=== PATIENT | female | born 1945 | race Caucasian/White ===

== ENCOUNTER 2016-06-27 00:20 | Observation (INO) | payer MEDICARE, OTHER ==
[~2016-06-27] VITALS: Ht 157.5 cm; Wt 69.4 kg
[2016-06-27 00:30] VITALS: BP 144/70
[2016-06-27] MEDS ORDERED: LISI10TA2 PO (03:23)
[2016-06-27] MEDS ORDERED: SIMV40TA3 PO (03:23)
[2016-06-27] MEDS ORDERED: OMEP40CA5 PO (03:28)
[2016-06-27] MEDS ORDERED: CALC-30 PO (03:29)
[2016-06-27] MEDS ORDERED: MULT1TAB52 PO (03:29)
[2016-06-27] MEDS ORDERED: FERR-26 PO (03:30)
[2016-06-27 06:23] VITALS: BP 111/74
[2016-06-27] MEDS: CALCIUM CARB/VIT D3 500/200 TABLET PO SCH (09:55)
[2016-06-27] MEDS: MULTIVITAMIN with MINERAL TABLET. PO SCH (09:55)
[2016-06-27] MEDS: PANTOPRAZOLE 40 MG TABLET. PO SCH (09:55)
[2016-06-27] MEDS: ASPIRIN ENTERIC COATED 81 MG TABLET.DR. PO SCH (09:56)
[2016-06-27] MEDS: LISINOPRIL 10 MG TABLET PO SCH (09:56)
[2016-06-27 10:09] VITALS: BP 107/55
--- NOTE | 2016-06-27 12:19 | RAD ---
Indication TIA versus CVA. Grayscale color Doppler and spectral imaging was performed. Examination was targeted to the carotid bifurcations. On the right there is mild plaquing at the bifurcation. The color Doppler images do not suggest significant turbulence. The common carotid waveform and velocities are normal. The internal carotid waveform and velocities are also normal. The external carotid has a normal appearance. The vertebral artery is patent and demonstrates normal antegrade flow. On the left there is minimal plaquing at the bifurcation. The color Doppler images do not suggest significant turbulence. The common carotid waveform and velocities are normal. The internal carotid waveform and velocities are also normal. The external carotid has a normal appearance. The vertebral is patent and demonstrates normal directional flow. IMPRESSION: No evidence of hemodynamically significant stenosis at either carotid bifurcation. Stenosis 0-50%. Note: Stenosis calculations for CT, MR and conventional angiography are based upon determination of the distal ICA diameter in accordance with the NASCET methodology. Stenosis calculations for doppler studies are derived from validated velocity criteria which are known to correlate with NASCET methodology of determining stenosis.
--- NOTE | 2016-06-27 13:15 | HP ---
ADMIT DATE: 06/27/2016 REASON FOR ADMISSION: This is a 70-year-old female who is deaf, has a cochlear implant, but cannot hear at the present time. Apparently, hearing aid is broken, but she reads lips very well. She was transferred from [facility] for concerns of her roommates and such that she has not come out of her apartment for 24 hours. She noticed that she was leaning to the right in her wheelchair and not able to get up and walk. PAST MEDICAL HISTORY: Parkinson's disease and currently not on any medications. Severe tremor. She does have a history of falls, reflux, breast cancer, HCC radiation, depression, hyperlipidemia, hypertension, some history seizures, and visual impairment. PAST SURGICAL HISTORY: Hand surgery x 3 after getting caught in a machine, cochlear implants, and breast surgery for ductal carcinoma. ALLERGIES: UNABLE TO GET AN MRI DUE TO MAGNET IN HEAD. MEDICATIONS: Reviewed and are available on the MAR. As stated she is not on an aspirin and does not take anything for Parkinson's. SOCIAL HISTORY: She smokes about 5 cigarettes a day. No alcohol. She lives in [facility]. She does have a daughter who is currently out of town. REVIEW OF SYSTEMS: Positive for tremors and leaning to the right yesterday; otherwise, negative. Emergency Room record states that she did not have the ability to get herself up from bed, stand, and move very well. OBJECTIVE: VITAL SIGNS: Blood pressure 107/55, pulse 68, respirations 18, and pulse ox 96% on room air, height 62 inches, and weight 157.13 pounds. GENERAL: A pleasant 70-year-old in no acute distress. HEENT: Her hearing is severely impaired. Though she cannot hear she reads lips and we communicated via writing. Pupils were equal, round, and react to light. Extraocular muscles are intact. Her nose was patent. Her throat was clear. Her tongue was midline. NECK: Supple without adenopathy. There are no carotid bruits. LUNGS: Clear to auscultation. CARDIOVASCULAR: Regular rhythm and rate. ABDOMEN: Soft and nontender. EXTREMITIES: Without edema. NEUROLOGIC: She has a severe tremor on the right arm and less so in the left resting tremor. Cranial nerves, hearing impaired, but others appear intact. Shrug her shoulders. Tongue midline and can cooperate. Pneumatic Tester Mechanic strength is about equal; a little bit weaker on the right. Reflexes were brisk 2+/4. The patient was assisted out of at bed [facility] when she was able to take a few short shuffled steps. LABORATORY DATA: Her blood work from [facility] normal CBC. Normal chemistry profile. CT of the head, no acute intracranial findings. This is via from [facility]. The ventricles are mildly enlarged. Mild decreased attenuation seen with periventricular white matter consistent with small vessel disease. ASSESSMENT: 1. Weakness. 2. Deafness. 3. Stroke-like symptoms in the Emergency Room at [facility]. 4. White matter disease of the brain. 5. Parkinson's disease with severe tremor and this is untreated. 6. Hypertension. 7. Gastroesophageal reflux disease. PLAN: Neurological consult, PT and OT, and possibly place her on some type of medicine for Parkinson's. KAREEM REYES DO DR: ELIANE/carolee JOB#: [id number] / [id number]
[2016-06-27] MEDS: CARBIDOPA/LEVODOPA 25/100MG TABLET PO SCH ×2 (14:03→20:39)
[2016-06-27] MEDS: rOPINIRole 0.5 MG TABLET. PO SCH ×2 (14:03→20:39)
[2016-06-27 16:50] VITALS: BP 123/81
[2016-06-27 17:25] VITALS: BP 102/53
[2016-06-27 19:30] VITALS: BP 112/70
[2016-06-27] MEDS ORDERED: SIMVASTATIN 40 MG TABLET. PO SCH (21:00)
[2016-06-27] MEDS ORDERED: FERROUS SULFATE 325 MG TABLET PO SCH (21:00)
--- NOTE | 2016-06-28 01:48 | CONS ---
DATE OF CONSULTATION: 06/27/2016 NEURO CONSULT REFERRING PHYSICIAN: Dr. Saskia Ballard. REASON FOR CONSULTATION: Rule out stroke. HISTORY OF PRESENT ILLNESS: This is a 70-year-old right-handed white female who was transferred from [facility] Emergency Room for further care as there was no bed available at [facility]. The patient is an assisted care living place resident. She was found with weakness of the right side leaning to the right in her wheelchair. The patient had not come out of her apartment in 24 hours. The patient was alert and oriented; however, she was unable to stand up and walk. She has had significant hearing loss and had a cochlear implant. She can read lips, but unable to provide any information. Initial nonenhanced head CT scan revealed no evidence of acute intracranial process. According to the Emergency Room note, the patient is unsteady and unable to use a cane or walker. PAST MEDICAL HISTORY: Quite significant for depressions, hyperlipidemia, hypertension, Parkinson's disease, seizure disorders and visual disturbances, breast cancer on the left, and iron deficiency anemia. PAST SURGICAL HISTORY: Significant for hand surgery, cochlear implant, and breast surgery. FAMILY HISTORY: None obtainable. SOCIAL HISTORY: The patient smokes a quarter of pack of cigarettes daily. There is no history of alcohol drinking or illicit drug use. CURRENT MEDICATIONS: Zocor 40 mg at bedtime, ferrous sulfate 325 mg at bedtime, aspirin 81 mg p.o. daily, Protonix 40 mg p.o. daily, calcium/vitamin, lisinopril 10 mg daily. ALLERGIES: No known drug allergies. REVIEW OF SYSTEMS: As mentioned above in history of present illness, otherwise none obtainable. PHYSICAL EXAMINATION: GENERAL: Well-developed, well-nourished white female, not in acute distress. She weighs 157 pounds. VITAL SIGNS: Blood pressure 107/55, respiratory rate 18, pulse is 68, temperature is 98.4, oxygen saturation 96% on room air. HEENT: Normocephalic, atraumatic, otherwise unremarkable. NECK: Supple. Negative for carotid bruit, lymphadenopathy, or thyromegaly. LUNGS: Clear to A and P. CARDIOVASCULAR: Regular rate and rhythm, normal S1, S2. There is no S3, S4 or murmur. ABDOMEN: Soft. Bowel sounds positive. EXTREMITIES: Negative for cyanosis, clubbing, or pitting edema. NEUROLOGIC: 1. Mental Status: The patient is alert and oriented to herself. Speech is fluent. Memory language and abstract thinking, limited to evaluate because of severe hearing loss. There is no facial motor or sensory deficit, bilateral hearing loss, and the gag reflex is present. The palate is elevated symmetrically. Sternocleidomastoid muscles are powerful bilaterally. The patient shrugs her shoulders symmetrically and protrudes her tongue in the midline without fasciculation or atrophy. 2. Motor Examination: No focal muscle bulk was seen. The tone is normal. The strength is 4/5 in the right upper extremity with mild drifting. The strength also was 5/5 throughout. Sensory examination revealed diminished pinprick and light touch senses over the right upper and lower extremities compared to those on the left side. Deep tendon reflexes are symmetric and active with absent Achilles responses. Babinski is positive on the right side and negative on the left. Gait not tested. The patient has resting tremors on both upper extremities, more prominent on the right side. The tone is normal. She had mild kinetic and postural tremors. LABORATORY DATA: CBC revealed white blood cells of 8.8 thousand, hemoglobin 13.2, hematocrit 38, platelet count 176,000. Chemistry revealed sodium 141, potassium 3.6, chloride 107, CO2 23. Glucose is 84, calcium is 9.2. BUN is 12, creatinine 0.9. Liver enzymes are normal. DIAGNOSTIC DATA: Head CT scan as described in the history of present illness is negative for acute intracranial process and left partial mastoidectomy. Chronic small vessel ischemic changes were also noted. IMPRESSION: 1. Possible small lacunar infarct resulted in a mild weakness of the right side more prominent on the upper extremity. 2. Parkinson's disease. 3. GERD, hyperlipidemia, hypertension. 4. Severe bilateral hearing loss, status post post-cochlear implant. RECOMMENDATIONS: 1. Continue with aspirin 81 mg daily. 2. Await carotid Doppler study. 3. We will start the patient on carbidopa/levodopa . 4. Physical therapy and speech therapy evaluation. 5. Continue with current management initiated by Dr. Ballard. Beth GUILLEN MD DR: JESUS/carolee JOB#: [id number] / [id number]
[2016-06-28 04:04] VITALS: BP 110/53
[2016-06-28 06:00] VITALS: BP 11/65
[2016-06-28 06:48] LABS: BASO % 1 % (0-3); EOS # 0.2 x10^3/uL (0.0-0.7); EOS % 3 % (0-3); HEMATOCRIT 37.6 % (36.0-47.0); HEMOGLOBIN 12.6 g/dL (12.0-15.5); LYMPH # 1.9 x10^3/uL (1.0-4.8); LYMPH % 25 % (24-48); MEAN CORPUSCULAR HEMOGLOBIN 30 pg (25-35); MEAN CORPUSCULAR HGB CONC 34 g/dL (31-37); MEAN CORPUSCULAR VOLUME 89 fL (79-100); MONO # 0.7 x10^3/uL (0.0-1.1); MONO % 10 % (0-9); NEUT # 4.7 x10^3uL (1.8-7.7); NEUT % 62 % (31-73); PLATELET COUNT 153 x10^3/uL (140-400); RED BLOOD COUNT 4.24 x10^6/uL (3.50-5.40); RED CELL DISTRIBUTION WIDTH 14.7 % (11.5-14.5); WHITE BLOOD COUNT 7.6 x10^3/uL (4.0-11.0)
[2016-06-28 06:57] LABS: ALBUMIN 2.8 g/dL (3.4-5.0); ALBUMIN/GLOBULIN RATIO 0.9 (1.0-1.7); CALCIUM 8.3 mg/dL (8.5-10.1); CREATININE 0.7 mg/dL (0.6-1.0); MAGNESIUM 1.8 mg/dL (1.8-2.4); POTASSIUM 3.9 mmol/L (3.5-5.1); TOTAL BILIRUBIN 0.5 mg/dL (0.2-1.0)
[2016-06-28] MEDS: rOPINIRole 0.5 MG TABLET. PO SCH ×2 (08:10→14:07)
[2016-06-28] MEDS: MULTIVITAMIN with MINERAL TABLET. PO SCH (08:10)
[2016-06-28] MEDS: LISINOPRIL 10 MG TABLET PO SCH (08:10)
[2016-06-28] MEDS: PANTOPRAZOLE 40 MG TABLET. PO SCH (08:10)
[2016-06-28] MEDS: CALCIUM CARB/VIT D3 500/200 TABLET PO SCH (08:10)
[2016-06-28] MEDS: CARBIDOPA/LEVODOPA 25/100MG TABLET PO SCH ×2 (08:11→14:07)
[2016-06-28] MEDS: ASPIRIN ENTERIC COATED 81 MG TABLET.DR. PO SCH (08:11)
[2016-06-28 09:35] VITALS: BP 100/66
--- NOTE | 2016-06-28 10:55 | PN ---
DATE: 06/27/2016 SUBJECTIVE: The patient denies any new medical or neurological complaints. OBJECTIVE: GENERAL: Well-developed, well-nourished white female, not in acute distress. VITAL SIGNS: Blood pressure 110/65, respiratory rate 18, pulse is 60 and regular, temperature is 98.9, oxygen saturation 96% on room air. HEENT: Normocephalic, atraumatic; otherwise, unremarkable. NECK: Supple. Negative for carotid bruit, lymphadenopathy or thyromegaly. LUNGS: Clear to A and P. CARDIOVASCULAR: Regular rate and rhythm, normal S1, S2. There is no S3, S4 or murmur. ABDOMEN: Soft. Bowel sounds positive. EXTREMITIES: Negative for cyanosis, clubbing or pitting edema. NEUROLOGICAL EXAM: Mental Status: The patient is alert and oriented to herself. Speech is fluent. The patient is very hard of hearing; therefore, judgment, abstract thinking, and language is limited to evaluate. Cranial Nerves: Intact except for severe bilateral hearing loss. No facial motor or sensory deficit. The rest of the cranial nerves are intact. Motor: No focal muscle bulk was seen. The tone is normal. The strength is 4/5 throughout. The patient has resting tremor of both upper extremities, more prominent on the right side. The tone is normal. Sensory: Revealed diminished pinprick and light touch senses over the right upper and lower extremities compared to those on the left side. Deep tendon reflexes are symmetrical without pathology responses. Gait: Not tested. LABORATORY DATA: CBC revealed white blood cells of 7.6 thousand, hemoglobin 12.6, hematocrit 37.6, and platelet count 153. Chemistry revealed sodium of 142, potassium 3.9, chloride 109, CO2 27, BUN 18, creatinine 0.7, glucose is 93. IMPRESSION: 1. Possible small lacunar infarct resulted in mild weakness of the right side -- improved. 2. Resting and sometimes kinetic tremors of the upper extremities, more prominent on the right side consistent with parkinsonian and tremor. However, senile tremor could not be entirely excluded at this time. 3. Status post cochlear implant on the left side. 4. History of hypertension, hyperlipidemia and gastroesophageal reflux disease. RECOMMENDATIONS: Continue with current management including aspirin and antiparkinsonism medications as outlined above. The patient should have a followup with [facility] for evaluation of progress on her tremor and gait. I would like to see her after 1 week from discharge. M Carol GUILLEN MD DR: JESUS/carolee JOB#: [id number] / [id number]
[2016-06-28] MEDS ORDERED: CARB1TAB2 PO (13:05)
[2016-06-28] MEDS ORDERED: ROPI0.5T PO (13:05)
[2016-06-28] MEDS ORDERED: ASPI-630 PO (13:05)
--- NOTE | 2016-06-28 15:10 | DS ---
DATE OF DISCHARGE: 06/28/2016 HISTORY OF PRESENT ILLNESS: The patient is a 70-year-old female patient who was transferred from [facility] Emergency Room for further care. There are no beds available for her at that hospital and she lives in assisted living place. She was found with weakness of the right side leaning to the right side of her wheelchair. Apparently, the patient did not come out of her apartment for 24-hour. The patient was alert and oriented; however, she was unable to stand up or walk. She had significant hearing loss and had cochlear implant. She can read lips, but unable to provide any information. Her initial noncontrasted head CT scan revealed no evidence of acute intracranial hemorrhage and the patient was unsteady and unable to use a cane or walker. She was evaluated by Dr. Plaza who told her that she has possible small lacunar infarct resulted in mild weakness in the right side and more prominent in the right upper extremity. She also has Parkinson's disease for which she started on carbidopa/levodopa. Her carotid Doppler ultrasound was unremarkable with no evidence of hemodynamically significant stenosis at either carotid bifurcation and given that she is stable a decision was made to discharge her home with home health. PHYSICAL EXAMINATION: GENERAL: When I examined her this afternoon, she was resting slightly propped up in bed, in no apparent distress. Awake and alert. She was pale. No jaundice, cyanosis, or thyromegaly. No jugular venous distention. No limb edema. VITAL SIGNS: Her heart rate was 61, blood pressure was 100/66, temperature was 98.7, respiratory rate 20, and oxygen saturation was 96%. HEENT: Showed normocephalic and atraumatic. NECK: Supple. HEART: Showed normal first and second heart sounds. No gallop, rub, or murmur. CHEST: Clear to auscultation. No crepitation or rhonchi. ABDOMEN: Distended, soft, and nontender. No guarding or rigidity. No organomegaly. Hernial orifices are intact. Bowel sounds normal. NEUROLOGIC: She was extremely hard of hearing; otherwise all her cranial nerves are intact. EXTREMITIES: She moves extremities without difficulty. She ambulates without assistance or assistive devices. LABORATORY DATA: Her lab work as of this morning showed a white cell count of 7600, hemoglobin 12.6, hematocrit 37.6, MCV 89, and platelet count 153,000. Her chemistry showed serum sodium of 152, potassium 3.9, chloride 109, bicarbonate 27, anion gap of 6, BUN 10, creatinine 0.7, and estimated GFR was 50 mL per minute. Her glucose was 93, calcium was 8.3, and magnesium was 1.8. Total bilirubin, AST, ALT, and alkaline phosphatase are normal. Protein was 6 and albumin 2.8. DISCHARGE MEDICATIONS: The patient was discharged home to continue on following medications aspirin 81 mg once a day, carbidopa/levodopa 25/100 one tablet two times a day, and Requip 0.5 mg 3 times a day. She is also on calcium carbonate with vitamin D one tablet once a day, ferrous sulfate 325 mg at bedtime, lisinopril 10 mg once a day, multivitamin one tablet once a day, omeprazole 40 mg once a day, and simvastatin 40 mg once a day. FINAL DISCHARGE DIAGNOSES: 1. Possible small lacunar infarct with resultant mild weakness on the right side more prominent in the upper extremity. 2. Parkinson's disease. 3. Gastroesophageal reflux disease. 4. Hyperlipidemia. 5. Hypertension. 6. Severe bilateral hearing loss status post cochlear implant. DISPOSITION: The patient will be discharged home with home health. WILLIAM RICO MD DR: DIONTE/carolee JOB#: [id number] / [id number]
== END 2016-06-28 15:00 | disposition home health service (06) ==
LOC: INTOOBSV 00:20 → ICU 00:20
PROVIDERS: ADMIT Family Medicine; ATTEND Family Medicine
DX: R53.1 Weakness (principal); G20 Parkinson's disease; K21.9 Gastro-esophageal reflux disease without esophagitis; E78.5 Hyperlipidemia, unspecified; I10 Essential (primary) hypertension; H91.93 Unspecified hearing loss, bilateral; R90.82 White matter disease, unspecified; G40.909 Epilepsy, unspecified, not intractable, without status epilepticus; H54.7 Unspecified visual loss; F32.9 Major depressive disorder, single episode, unspecified; F17.210 Nicotine dependence, cigarettes, uncomplicated; Z91.81 History of falling; Z96.21 Cochlear implant status; Z85.3 Personal history of malignant neoplasm of breast
CPT/HCPCS: 36415; 80053; 83735; 85027; 87641; 93880; 97162; 97165; G0378; G0379

== ENCOUNTER 2016-09-11 16:10 | Inpatient (IN) | payer MEDICARE, OTHER ==
[~2016-09-11] VITALS: Ht 157.5 cm; Wt 67.4 kg
[~2016-09-11 16:10] MED LIST: ASPI-630 PO; CALC-30 PO; CARB1TAB2 PO; FERR-26 PO; LISI10TA2 PO; MULT1TAB52 PO; OMEP40CA5 PO; ROPI0.5T PO; SIMV40TA3 PO
[2016-09-11] MEDS ORDERED: IV NORMAL SALINE 1,000ML 1,000 ML IV ONE (16:30)
--- NOTE | 2016-09-11 16:54 | RAD ---
Indication heel congestion mental status change. A single view of the chest was obtained. No prior imaging of the chest is available. The heart and pulmonary vessels appear normal. There is a retrocardiac density which likely reflects hiatus hernia. No acute parenchymal infiltrate is seen. Significant pleural fluid is not present. There is no pneumothorax. Postoperative changes are seen associated with the right humerus. IMPRESSION: No acute finding in the chest. Probable hiatus hernia
[2016-09-11 16:56] LABS: BASO % 0 % (0-3); EOS % 0 % (0-3); HEMATOCRIT 36.1 % (36.0-47.0); HEMOGLOBIN 12.3 g/dL (12.0-15.5); LYMPH % 13 % (24-48); MEAN CORPUSCULAR HEMOGLOBIN 30 pg (25-35); MEAN CORPUSCULAR HGB CONC 34 g/dL (31-37); MEAN CORPUSCULAR VOLUME 88 fL (79-100); MONO # 0.4 x10^3/uL (0.0-1.1); MONO % 6 % (0-9); NEUT # 6.2 x10^3uL (1.8-7.7); NEUT % 81 % (31-73); PLATELET COUNT 166 x10^3/uL (140-400); RED CELL DISTRIBUTION WIDTH 13.8 % (11.5-14.5); WHITE BLOOD COUNT 7.7 x10^3/uL (4.0-11.0)
[2016-09-11 17:03] LABS: BILIRUBIN,URINE NEG (NEG); CLARITY,URINE CLEAR; COLOR,URINE STRAW; GLUCOSE,URINE NEG (NEG)
[2016-09-11 17:04] LABS: AMORPHOUS SEDIMENT,UR PRESENT /HPF; BACTERIA,URINE 0 /HPF (0-FEW); NITRITE,URINE NEG (NEG); RBC,URINE 0 /HPF (0-2); SQUAMOUS EPITHELIAL CELL,UR OCC /LPF; UROBILINOGEN,URINE 0.2 mg/dL (0.2 mg/dL); WBC,URINE OCC /HPF (0-4)
[2016-09-11 17:08] LABS: ALBUMIN 3.2 g/dL (3.4-5.0); CALCIUM 8.9 mg/dL (8.5-10.1); MAGNESIUM 1.6 mg/dL (1.8-2.4); POTASSIUM 3.9 mmol/L (3.5-5.1); TOTAL BILIRUBIN 0.4 mg/dL (0.2-1.0); TOTAL PROTEIN 6.4 g/dL (6.4-8.2)
--- NOTE | 2016-09-11 17:45 | PHYS DOC ---
Past History Past Medical History: Other Past Surgical History: Other Alcohol Use: None Drug Use: None Adult General Chief Complaint Chief Complaint: HEAT EXPOSURE HPI HPI Patient is a 70-year-old female brought to the ED by EMS from her home. History is from EMS. Patient is not able to contribute to the history. Per EMS, they were called by a neighbor who found the patient laying on her porch. The patient had gone out on her porch to smoke one half to one hour ago they believe. At some point she ended up on the floor, whether she slipped out of a chair or fell when she was getting up from the chair. Patient states that she slipped out of the chair. Patient does state she has some pain on her "bottom" but otherwise no pain. The heat index as well over 100. Patient states that she lives alone and she has no family in the area. She states that her daughter comes up once a month to check on her from [facility]. Patient states she does not go to the doctor and has no medical problems. Review of Systems Review of Systems Patient is not oriented and not giving fully reliable answers and therefore review of systems is felt to be unreliable. Current Medications Current Medications Current Medications Medications (Trade) Dose Ordered Sig/Neisha Start Time Stop Time Status Last Admin Dose Admin Sodium Chloride 1,000 ml @ 1,000 mls/hr 1X ONCE 09/11/16 16:30 09/11/16 17:29 DC 09/11/16 16:30 1,000 MLS/HR Allergies Allergies Allergies Uncoded Allergies Type Severity Reaction Last Updated Verified MRI Adverse Reaction Severe Unknown 06/27/16 Physical Exam Physical Exam Constitutional: Elderly female who is alert, is verbal, but seems confused. Moving all extremities with good strength. HENT: Normocephalic, atraumatic, bilateral external ears normal, oropharynx looks a little dry, nose normal. [] Eyes: conjunctiva normal, no discharge. [] Neck: Normal range of motion, no stridor. [] Cardiovascular:Heart rate regular rhythm, no murmur, mildly tachycardic Lungs & Thorax: Bilateral breath sounds clear to auscultation [] Abdomen: Bowel sounds normal, soft, no tenderness, no masses, no pulsatile masses. [] Skin: Warm, dry, no erythema, no rash. [] Back: No tenderness, no CVA tenderness. Redness to presacral area but no skin damage seen. Extremities: No tenderness, no cyanosis, no clubbing, ROM intact, no edema. [] Neurologic: Alert and oriented to one or 2, normal motor function, normal sensory function, no focal deficits noted. [] Current Patient Data Vital Signs Vital Signs Date Time Temp Pulse Resp B/P (MAP) Pulse Ox O2 Delivery O2 Flow Rate FiO2 09/11/16 17:17 99.1 83 16 138/74 (95) 94 Room Air Lab Results Laboratory Tests Test 09/11/16 16:30 White Blood Count 7.7 x10^3/uL (4.0-11.0) Red Blood Count 4.10 x10^6/uL (3.50-5.40) Hemoglobin 12.3 g/dL (12.0-15.5) Hematocrit 36.1 % (36.0-47.0) Mean Corpuscular Volume 88 fL (79-100) Mean Corpuscular Hemoglobin 30 pg (25-35) Mean Corpuscular Hemoglobin Concent 34 g/dL (31-37) Red Cell Distribution Width 13.8 % (11.5-14.5) Platelet Count 166 x10^3/uL (140-400) Neutrophils (%) (Auto) 81 % (31-73) H Lymphocytes (%) (Auto) 13 % (24-48) L Monocytes (%) (Auto) 6 % (0-9) Eosinophils (%) (Auto) 0 % (0-3) Basophils (%) (Auto) 0 % (0-3) Neutrophils # (Auto) 6.2 x10^3uL (1.8-7.7) Lymphocytes # (Auto) 1.0 x10^3/uL (1.0-4.8) Monocytes # (Auto) 0.4 x10^3/uL (0.0-1.1) Eosinophils # (Auto) 0.0 x10^3/uL (0.0-0.7) Basophils # (Auto) 0.0 x10^3/uL (0.0-0.2) Urine Collection Type U cath Urine Color Straw Urine Clarity Clear Urine pH 7.0 Urine Specific [place] 1.020 Urine Protein Neg (NEG-TRACE) Urine Glucose (UA) Neg mg/dL (NEG) Urine Ketones (Stick) Neg mg/dL (NEG) Urine Blood Neg (NEG) Urine Nitrite Neg (NEG) Urine Bilirubin Neg (NEG) Urine Urobilinogen Dipstick 0.2 mg/dL (0.2 mg/dL) Urine Leukocyte Esterase Neg (NEG) Urine RBC 0 /HPF (0-2) Urine WBC Occ /HPF (0-4) Urine Squamous Epithelial Cells Occ /LPF Urine Amorphous Sediment Present /HPF Urine Bacteria 0 /HPF (0-FEW) Sodium Level 137 mmol/L (136-145) Potassium Level 3.9 mmol/L (3.5-5.1) Chloride Level 104 mmol/L (98-107) Carbon Dioxide Level 25 mmol/L (21-32) Anion Gap 8 (6-14) Blood Urea Nitrogen 14 mg/dL (7-20) Creatinine 1.0 mg/dL (0.6-1.0) Estimated GFR (Cockcroft-Gault) 55.0 BUN/Creatinine Ratio 14 (6-20) Glucose Level 170 mg/dL (70-99) H Calcium Level 8.9 mg/dL (8.5-10.1) Magnesium Level 1.6 mg/dL (1.8-2.4) L Total Bilirubin 0.4 mg/dL (0.2-1.0) Aspartate Amino Transferase (AST) 14 U/L (15-37) L Alanine Aminotransferase (ALT) 16 U/L (14-59) Alkaline Phosphatase 51 U/L (46-116) Troponin I Quantitative < 0.017 ng/mL (0-0.055) Total Protein 6.4 g/dL (6.4-8.2) Albumin 3.2 g/dL (3.4-5.0) L Albumin/Globulin Ratio 1.0 (1.0-1.7) EKG EKG Lead EKG read by me. Sinus rhythm. Heart rate 92. There are no acute ST or T wave changes indicative of ischemia or infarction. No STEMI. 1644 [] Radiology/Procedures Radiology/Procedures One view portable chest x-ray read by the radiologist. No acute finding. [] Course & Med Decision Making Course & Med Decision Making Pertinent Labs and Imaging studies reviewed. (See chart for details) 70-year-old female was out in the heat for an unknown period of time, heat index is well over 100. We do not know this patient and do not know her baseline, no one here with the patient. However, she reportedly lives alone, so I feel that she is not really at her baseline since she is not fully oriented and not answering questions reliably. Her temp on arrival was 100.3. She was cool down by patting her skin with cool water. She was given a liter of fluids. Labs really surprisingly unremarkable. Chest x-ray, EKG unremarkable. The patient remained stable but her mental status did not improve dramatically. I feel she should be admitted for continued IV fluids, observation, she needs a cool environment, hopefully her mental status will continue to improve as she continues to be hydrated and cool down. Discussed the case with Dr. Montero who will admit the patient. I wrote bridge orders. [] Dragon Disclaimer Dragon Disclaimer This chart was dictated in whole or in part using Voice Recognition software in a busy, high-work load, and often noisy Emergency Department environment. It may contain unintended and wholly unrecognized errors or omissions. Departure Departure: Impression: Primary Impression: Hyperthermia Additional Impressions: Dehydration Altered mental status Disposition: ADMITTED INPATIENT Admitting Physician: Gaudencio Montero Condition: GUARDED Referrals: MIKE FRANCIS DO (PCP) Problem Qualifiers RAI NOLEN MD Sep 11, 2016 17:45
--- NOTE | 2016-09-11 18:16 | RAD ---
CT Head W/O Contrast: History: mental status change Comparison: none Axial images were obtained without contrast. The powell and white matter appears normal and symmetrical for the patients age. There is no mass effect, extraaxial fluid collections or hydrocephalus. There is no gross bleed. There is no focal loss of powell-white matter distinction to suggest acute ischemia, i.e. stroke. There is beam Banuelos artifact due to the cochlear implant on the right. Impression: No acute findings. PQRS Compliance Statement: One or more of the following individualized dose reduction techniques were utilized for this examination: 1. Automated exposure control 2. Adjustment of the mA and/or kV according to patient size 3. Use of iterative reconstruction technique Electronically signed by: Jesus Pittman III, MD (09/11/2016 6:13 PM) [facility]
--- NOTE | 2016-09-11 18:22 | EKG ---
[address] [address] Test Date: 2016-09-11 Test Time: 16:44:51 Pat Name: SHANT SHETH Department: Room: Gender: F Mmi Teacher: ALEX : 1945 Requested By: RAI NOLEN Order Number: [id number] Reading MD: Rocco Hammonds Measurements Intervals Indian Rate: 92 P: 34 CT: 150 QRS: 29 QRSD: 82 T: 32 QT: 344 QTc: 430 Interpretive Statements SINUS RHYTHM Electronically Signed On 09-16-2016 14:39:32 CDT by Rocco Hammonds
[2016-09-11] MEDS ORDERED: IV NORMAL SALINE 1,000ML 1,000 ML IV SCH (19:55)
[2016-09-11] MEDS ORDERED: ACETAMINOPHEN 325 MG TABLET PO PRN (20:00)
[2016-09-11] MEDS: IV NORMAL SALINE 1,000ML 1,000 ML IV SCH (20:00)
[2016-09-11] MEDS ORDERED: ONDANSETRON PF 4 MG/2 ML VIAL. IV PRN ×2 (20:00→20:15)
[2016-09-11 21:37] VITALS: BP 108/69
[2016-09-11] MEDS: rOPINIRole 0.5 MG TABLET. PO SCH (22:00)
--- NOTE | 2016-09-12 01:05 | ACF ---
Admit Criteria Forms Admit Criteria Forms Admit Criteria Forms MENTAL STATUS CHANGE Clinical Indications for Inpatient Care (Place 'X' for any and all applicable criteria): Ongoing inpatient care may be needed for 1 or more of the following(1)(2)(3)(5)( 6): [ X]I. Suspected serious etiology (eg, medical disorder, SNACK BAR ATTENDANT event) of altered mental status [ ]II. Danger to self or others not manageable at lower level of care [ ]III. Grave disability (eg, inability to perform self care necessary at lower level of care) [ ]IV. Agitation or inappropriate behavior interfering with care for primary condition (eg, attempting to discontinue lines or drains prematurely, unable to cooperate with respiratory care) [ ]V. Delirium [A] [D][E] as described by 1 or more of the following(26): [ ]a) Delirium due to alcohol or sedative [F] withdrawal [ ]b) Delirium of uncertain etiology that has not responded to appropriate empiric treatment [ ]c) Delirium that prevents performance of a life-sustaining function (eg, feeding or hydrating oneself) [ ]. General contraindications and/or Inappropriate clinical situations for Observational Care in patients with Mental Status Change, when ANY ONE of the following is required: [ ]a) Prediction of prolongation of LOS based on ANY ONE of the following may be considered as a contraindication for observational care 2, 3, 4, 5, 6, 7, 8, 9, 10, 11 [ ]i) Age > 65 yrs. [ ]ii) Patient arriving by ambulance [ ]iii) Patient with high acuity [ ]iv) Patient requiring vital sign monitoring [ ]v) Patient on IV medication [ ]b) Systolic blood pressures greater than or equal to 180mmHg 3, 12 [ ]c) Patient with altered mental status including delirium and other alteration of consciousness, (3) [ ]d) Patient whose discharge disposition will be to a jail home or rehabilitation home should not be managed in Emergency Department Observation Unit. CMS rule requires 3 days hospital stay before such placement.3,13 [ ]e) Patient with failure to thrive due to broad array of etiologies 3,16,17 [ ]f) Inability to ambulate 3,14 Extended stay beyond goal length of stay for the primary condition may be needed until ALL of the following are present(3)(5): [ ]a) Underlying medical etiology of mental status change is absent, or has been established and adequately treated [ ]b) Danger to self or others is absent or manageable at lower level of care. [ ]c) Behavior crisis management, including physical or chemical restraints, is not required or available at lower level of car [ ]d) Substance or alcohol withdrawal is absent or manageable at lower level of care. [ ]e) Behavioral symptoms (eg, agitation, somnolence, inappropriate behavior) are absent, or are manageable at lower level of care. The original [facility] [employer] content created by [facility] has been revised. The portions of the content which have been revised are identified through the use of italic text or in bold, and [facility] has neither reviewed nor approved the modified material. All other unmodified content is copyright [facility]. Please see references footnoted in the original [facility] [employer] edition 2016 ISABEL ONEIL Sep 12, 2016 01:05
[2016-09-12] MEDS: IV NORMAL SALINE 1,000ML 1,000 ML IV SCH ×2 (04:54→13:29)
[2016-09-12 06:24] LABS: BASO % 1 % (0-3); EOS # 0.1 x10^3/uL (0.0-0.7); EOS % 1 % (0-3); HEMATOCRIT 33.2 % (36.0-47.0); HEMOGLOBIN 11.3 g/dL (12.0-15.5); LYMPH # 2.1 x10^3/uL (1.0-4.8); LYMPH % 27 % (24-48); MEAN CORPUSCULAR HEMOGLOBIN 30 pg (25-35); MEAN CORPUSCULAR HGB CONC 34 g/dL (31-37); MEAN CORPUSCULAR VOLUME 89 fL (79-100); MONO # 0.6 x10^3/uL (0.0-1.1); MONO % 8 % (0-9); NEUT % 64 % (31-73); PLATELET COUNT 147 x10^3/uL (140-400); RED BLOOD COUNT 3.73 x10^6/uL (3.50-5.40); RED CELL DISTRIBUTION WIDTH 13.9 % (11.5-14.5); WHITE BLOOD COUNT 7.8 x10^3/uL (4.0-11.0)
[2016-09-12 06:29] LABS: CALCIUM 8.2 mg/dL (8.5-10.1); CREATININE 0.8 mg/dL (0.6-1.0); GFR 71.1; POTASSIUM 3.8 mmol/L (3.5-5.1)
[2016-09-12 06:32] VITALS: BP 112/71
[2016-09-12] MEDS: rOPINIRole 0.5 MG TABLET. PO SCH ×3 (08:29→20:11)
[2016-09-12] MEDS: CARBIDOPA/LEVODOPA 25/100MG TABLET PO SCH ×3 (08:29→20:11)
[2016-09-12] MEDS: LISINOPRIL 10 MG TABLET PO SCH (08:30)
[2016-09-12] MEDS: PANTOPRAZOLE 40 MG TABLET. PO SCH (08:31)
[2016-09-12] MEDS: CALCIUM CARB/VIT D3 500/200 TABLET PO SCH (08:31)
[2016-09-12] MEDS: ASPIRIN 81 MG TAB.CHEW PO SCH (08:31)
[2016-09-12] MEDS: MULTIVITAMIN with MINERAL TABLET. PO SCH (08:31)
[2016-09-12 11:00] VITALS: BP 126/72
[2016-09-12] MEDS: ACETAMINOPHEN 325 MG TABLET PO PRN ×2 (13:57→19:27)
[2016-09-12 15:00] VITALS: BP 126/65
[2016-09-12] MEDS: LIDOCAINE (700MG/PATCH) PATCH. TD SCH (17:00)
--- NOTE | 2016-09-12 19:25 | HP ---
ADMIT DATE: 09/11/2016 HISTORY OF PRESENT ILLNESS: The patient is a 70-year-old female patient who was brought by the emergency medical services. She was found by her neighbor in her porch, apparently she went out to her porch to smoke, about half an hour to an hour before she was brought to the Emergency Room, she ended up sleeping on the floor and apparently her neighbor saw her and called the ambulance. The patient lives alone and has no family in the area. She stated her daughter comes once a month to check on her from [place], [place]. She was here actually, she was seen in this hospital and on 06/27/2016 at that time, she was admitted with a questionable stroke and was discharged for possible small lacunar infarct resulted mild weakness in her right side, more prominent in the upper extremity and was discharged home with home health. PAST MEDICAL HISTORY: Significant for depression, hyperlipidemia, hypertension, Parkinson disease, seizure disorder, and visual disturbances. She also has left-sided breast cancer and iron deficiency anemia. PAST SURGICAL HISTORY: Significant for hand surgery, cochlear implant and breast surgery. FAMILY HISTORY: Unremarkable. SOCIAL HISTORY: She lives alone, has 1 daughter out of town. She continued to smoke a quarter pack of cigarettes daily. She does not drink alcohol or use any recreational drugs. ALLERGIES: She is allergic to IODINATED CONTRAST ORAL AND IV DYE. MEDICATIONS: She is currently on following medications: She is on aspirin 81 mg once a day, calcium carbonate with vitamin D3 one tablet once a day, carbidopa/levodopa 25/100 two times a day, ferrous sulfate 325 mg at bedtime, lisinopril 10 mg once a day, multivitamin 1 tablet once a day, omeprazole 40 mg once a day, Requip 0.5 mg 3 times a day and simvastatin 40 mg at bedtime. PHYSICAL EXAMINATION: GENERAL: On arrival to the Emergency Room, she looked well and was clearly in no apparent respiratory distress. She was hard of hearing and clear cut parkinsonian tremors. HEAD, EYES, EARS, NOSE AND THROAT: Showed normocephalic, atraumatic. NECK: Supple. HEART: Showed normal first and second heart sounds with no gallop, rub or murmur. CHEST: Clear to auscultation. No crepitation or rhonchi. ABDOMEN: Distended, soft, nontender. NEUROLOGIC: She was hard of hearing, but without any obvious lateralizing sign. The patient is able to ambulate with a walker. LABORATORY DATA: While in the Emergency Room, she has had lab work done, which showed a white cell count 7700, hemoglobin 12.3, hematocrit 36, MCV 88 and platelet count 166,000. Her chemistry showed a serum sodium 137, potassium 3.9, chloride 104, bicarbonate 25, anion gap of 8, BUN 14, creatinine 1, estimated GFR was 55 mL per minute. Her glucose was 70, calcium was 8.9, magnesium was 1.6. Total bilirubin 0.4, AST, ALT, alkaline phosphatase were normal. Total protein was 6.4, albumin was 3.2. Her urinalysis was essentially unremarkable and was negative for nitrite and leukocyte esterase. There are occasional RBCs, no WBCs and no bacteria. She did have a chest x-ray, which showed no acute finding in the chest would probably hiatal hernia and a CT scan of the head showed that the sterling and white matter appeared normal and symmetrical for the patient's age. There is no mass effect, extraaxial fluid collection or hydrocephalus. There is no gross bleed, there is no focal loss of sterling and white matter distinction to suggest acute ischemia. There has been hardening artifact due to rule cochlear implant on the right side. In summary, this is a 70-year-old female patient who was admitted with questionable heat exposure, exhaustion; she was started on IV fluid, continued on her medications. We will monitor her lab work and given her Parkinson's disease and the fact that she lives alone, she probably will be a candidate for placement. We will consult our telephonic case manager to arrange for that as the patient seems to be receptive to the idea. WILLIAM RICO MD DR: DIONTE/carolee JOB#: [id number] / [id number]
[2016-09-12 19:30] VITALS: BP 131/69
[2016-09-12] MEDS: SIMVASTATIN 40 MG TABLET. PO SCH (20:10)
[2016-09-12] MEDS: FERROUS SULFATE 325 MG TABLET PO SCH (20:10)
[2016-09-12 22:39] VITALS: BP 123/70
[2016-09-12] MEDS ORDERED: ZOLPIDEM 5 MG TABLET. PO PRN (23:15)
--- NOTE | 2016-09-13 00:49 | PN ---
DATE: 09/11/2016 SUBJECTIVE: The patient is resting slightly propped up in bed, in no apparent distress. She continued to complain of low back pain, till now she has unstageable coccygeal ante decubitus ulcer, but denied any other complaint and when I questioned her, she still thinks that she can still live alone on her own. She stated that her daughter was working to get her in a snf as she no longer is capable of taking care of herself. We recommended that the patient stay overnight and our nurse outreach case manager will help with placement in a [place] [facility] [place] facility. PHYSICAL EXAMINATION: GENERAL: When I examined her this afternoon, she looked well, slightly pale, but no jaundice, cyanosis, or thyromegaly. No jugular venous distention. No limb edema. VITAL SIGNS: Her heart rate was 96, blood pressure 126/72, temperature was 97.8, respiratory rate was 18 and oxygen saturation was 96% on room air. HEAD, EYES, EARS, NOSE AND THROAT: Showed normocephalic, atraumatic. NECK: Supple. HEART: Showed normal first and second heart sounds with no gallop, rub or murmur. CHEST: Clear to auscultation. No crepitation or rhonchi. ABDOMEN: Distended, soft, nontender. NEUROLOGIC: She was awake, alert, very hard of hearing and with poor vision. Otherwise, all other cranial nerves are intact. She moves extremities without difficulty. She has marked parkinsonian tremors in both upper extremities. She walks with a walker. Her intake over the last 24 hour and output were incompletely recorded. LABORATORY DATA: This morning showed her serum sodium was 144, potassium 3.8, chloride 110, bicarbonate 29, anion gap of 5, BUN 10, creatinine 0.8, estimated GFR was 71 mL per minute. Her glucose was 88, calcium was 8.2 and her white cell count was 7800, hemoglobin 11, hematocrit 30, MCV 89 and platelet count of 147,000. ASSESSMENT: This is a 70-year-old female patient who fell in her porch. She has poor vision, hard of hearing, Parkinson's disease with unsteady gait. She has multiple other medical problems including hyperlipidemia, hypertension, obviously she is known to have Parkinson's disease, seizure disorder. PLAN: My plan is to discontinue the IV fluid as her lab works are all within acceptable range. She is eating and drinking. The patient seemed to be receptive to the idea of placement in a [place] [facility] [place], and would consult our nurse outreach case manager for placement. WILLIAM RICO MD DR: DIONTE/carolee JOB#: [id number] / [id number]
[2016-09-13 05:12] VITALS: BP 122/57
[2016-09-13 06:21] LABS: CALCIUM 8.3 mg/dL (8.5-10.1); CREATININE 0.8 mg/dL (0.6-1.0); GFR 71.1; POTASSIUM 3.9 mmol/L (3.5-5.1)
[2016-09-13 06:26] LABS: BASO % 0 % (0-3); EOS # 0.2 x10^3/uL (0.0-0.7); EOS % 3 % (0-3); HEMATOCRIT 33.2 % (36.0-47.0); HEMOGLOBIN 11.4 g/dL (12.0-15.5); LYMPH # 2.2 x10^3/uL (1.0-4.8); LYMPH % 31 % (24-48); MEAN CORPUSCULAR HEMOGLOBIN 31 pg (25-35); MEAN CORPUSCULAR HGB CONC 34 g/dL (31-37); MEAN CORPUSCULAR VOLUME 89 fL (79-100); MONO # 0.6 x10^3/uL (0.0-1.1); MONO % 9 % (0-9); NEUT # 4.1 x10^3uL (1.8-7.7); NEUT % 58 % (31-73); PLATELET COUNT 141 x10^3/uL (140-400); RED BLOOD COUNT 3.74 x10^6/uL (3.50-5.40); WHITE BLOOD COUNT 7.2 x10^3/uL (4.0-11.0)
[2016-09-13] MEDS: LISINOPRIL 10 MG TABLET PO SCH (07:50)
[2016-09-13] MEDS: rOPINIRole 0.5 MG TABLET. PO SCH ×3 (07:50→20:34)
[2016-09-13] MEDS: CALCIUM CARB/VIT D3 500/200 TABLET PO SCH (07:50)
[2016-09-13] MEDS: ASPIRIN 81 MG TAB.CHEW PO SCH (07:50)
[2016-09-13] MEDS: LIDOCAINE (700MG/PATCH) PATCH. TD SCH (07:50)
[2016-09-13] MEDS: CARBIDOPA/LEVODOPA 25/100MG TABLET PO SCH ×3 (07:50→20:34)
[2016-09-13] MEDS: PANTOPRAZOLE 40 MG TABLET. PO SCH (07:50)
[2016-09-13] MEDS: MULTIVITAMIN with MINERAL TABLET. PO SCH (07:51)
--- NOTE | 2016-09-13 10:36 | PDOC ---
PROVIDER NOTE PROVIDER NOTE PROVIDER NOTE Progress note on Italia Acuna on 09/13/2016 70-year-old female who was admitted on 09/11 after being found on her porch after falling while out being outside smoking a cigarette. She was found to have mild dehydration and heat exhaustion and was admitted. She has received IV fluids and her condition has improved and her mental status has improved also. She is back to her baseline. She would like to be placed in a [place]. The case consultant is working at that currently Problems: #1 status post fall with approximately 1 hour down time #2 dehydration #3 altered mental status #4 tobacco use disorder #5 communication difficulty #6 heat exhaustion resolved #7 cochlear implant status Physical exam: Vital signs noted. She is alert and oriented. She is able to read lips and I was able to communicate with her without too much difficulty. Tongue is moist, throat is clear, lungs were clear to auscultation, cardiovascular regular rhythm and rate, extremities without edema. Mental state alert and appropriate Labs have returned to normal. Plan make arrangements for placement for rehabilitation and long-term placement. PT, OT evaluation. KAREEM REYES DO Sep 13, 2016 10:36
[2016-09-13] MEDS: ACETAMINOPHEN 325 MG TABLET PO PRN ×2 (15:42→20:36)
[2016-09-13 16:18] VITALS: BP 142/77
[2016-09-13 19:20] VITALS: BP 129/62
[2016-09-13] MEDS: FERROUS SULFATE 325 MG TABLET PO SCH (20:34)
[2016-09-13] MEDS: SIMVASTATIN 40 MG TABLET. PO SCH (20:34)
[2016-09-14 06:00] VITALS: BP 117/63
[2016-09-14 06:17] LABS: BASO % 0 % (0-3); EOS # 0.2 x10^3/uL (0.0-0.7); EOS % 3 % (0-3); HEMOGLOBIN 11.9 g/dL (12.0-15.5); LYMPH # 2.1 x10^3/uL (1.0-4.8); LYMPH % 29 % (24-48); MEAN CORPUSCULAR HEMOGLOBIN 30 pg (25-35); MEAN CORPUSCULAR HGB CONC 34 g/dL (31-37); MEAN CORPUSCULAR VOLUME 88 fL (79-100); MONO # 0.6 x10^3/uL (0.0-1.1); MONO % 8 % (0-9); NEUT # 4.5 x10^3uL (1.8-7.7); NEUT % 60 % (31-73); PLATELET COUNT 154 x10^3/uL (140-400); RED BLOOD COUNT 3.97 x10^6/uL (3.50-5.40); WHITE BLOOD COUNT 7.4 x10^3/uL (4.0-11.0)
[2016-09-14 06:40] LABS: ALBUMIN 2.9 g/dL (3.4-5.0); ALBUMIN/GLOBULIN RATIO 0.9 (1.0-1.7); CALCIUM 8.4 mg/dL (8.5-10.1); CREATININE 0.9 mg/dL (0.6-1.0); GFR 62.1; MAGNESIUM 1.7 mg/dL (1.8-2.4); TOTAL BILIRUBIN 0.4 mg/dL (0.2-1.0)
[2016-09-14] MEDS: rOPINIRole 0.5 MG TABLET. PO SCH ×3 (09:09→20:59)
[2016-09-14] MEDS: LIDOCAINE (700MG/PATCH) PATCH. TD SCH (09:09)
[2016-09-14] MEDS: CALCIUM CARB/VIT D3 500/200 TABLET PO SCH (09:09)
[2016-09-14] MEDS: MULTIVITAMIN with MINERAL TABLET. PO SCH (09:09)
[2016-09-14] MEDS: PANTOPRAZOLE 40 MG TABLET. PO SCH (09:09)
[2016-09-14] MEDS: ASPIRIN 81 MG TAB.CHEW PO SCH (09:09)
[2016-09-14] MEDS: CARBIDOPA/LEVODOPA 25/100MG TABLET PO SCH ×3 (09:09→21:00)
[2016-09-14] MEDS: LISINOPRIL 10 MG TABLET PO SCH (09:10)
[2016-09-14 10:36] VITALS: BP 114/64
[2016-09-14 14:38] VITALS: BP 111/56
[2016-09-14] MEDS: MAGNESIUM CHLORIDE ER 64 MG TABLET.ER PO SCH (16:55)
[2016-09-14 20:03] VITALS: BP 121/69
[2016-09-14] MEDS: SIMVASTATIN 40 MG TABLET. PO SCH (21:00)
[2016-09-14] MEDS: FERROUS SULFATE 325 MG TABLET PO SCH (21:00)
[2016-09-15 05:18] VITALS: BP 113/65
[2016-09-15 06:49] LABS: BASO % 1 % (0-3); EOS # 0.2 x10^3/uL (0.0-0.7); EOS % 3 % (0-3); HEMATOCRIT 35.7 % (36.0-47.0); HEMOGLOBIN 12.2 g/dL (12.0-15.5); LYMPH # 1.8 x10^3/uL (1.0-4.8); LYMPH % 28 % (24-48); MEAN CORPUSCULAR HEMOGLOBIN 30 pg (25-35); MEAN CORPUSCULAR HGB CONC 34 g/dL (31-37); MEAN CORPUSCULAR VOLUME 88 fL (79-100); MONO # 0.5 x10^3/uL (0.0-1.1); MONO % 8 % (0-9); NEUT % 61 % (31-73); PLATELET COUNT 163 x10^3/uL (140-400); RED BLOOD COUNT 4.03 x10^6/uL (3.50-5.40); WHITE BLOOD COUNT 6.5 x10^3/uL (4.0-11.0)
[2016-09-15 07:03] LABS: CALCIUM 8.5 mg/dL (8.5-10.1); CREATININE 0.9 mg/dL (0.6-1.0); GFR 62.1; MAGNESIUM 1.7 mg/dL (1.8-2.4); POTASSIUM 3.6 mmol/L (3.5-5.1); TOTAL BILIRUBIN 0.5 mg/dL (0.2-1.0); TOTAL PROTEIN 6.1 g/dL (6.4-8.2)
[2016-09-15] MEDS: MAGNESIUM CHLORIDE ER 64 MG TABLET.ER PO SCH (08:26)
[2016-09-15] MEDS: CARBIDOPA/LEVODOPA 25/100MG TABLET PO SCH ×2 (08:26→14:06)
[2016-09-15] MEDS: ASPIRIN 81 MG TAB.CHEW PO SCH (08:26)
[2016-09-15] MEDS: CALCIUM CARB/VIT D3 500/200 TABLET PO SCH (08:26)
[2016-09-15] MEDS: MULTIVITAMIN with MINERAL TABLET. PO SCH (08:26)
[2016-09-15] MEDS: PANTOPRAZOLE 40 MG TABLET. PO SCH (08:26)
[2016-09-15] MEDS: LIDOCAINE (700MG/PATCH) PATCH. TD SCH (08:26)
[2016-09-15] MEDS: rOPINIRole 0.5 MG TABLET. PO SCH ×2 (08:27→14:06)
[2016-09-15] MEDS: LISINOPRIL 10 MG TABLET PO SCH (08:27)
[2016-09-15 10:39] VITALS: BP 94/61
--- NOTE | 2016-09-15 12:13 | PDOC3 ---
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 #9 mild protein calorie malnutrition Problems: Brief Hospital Course Allergies Allergies Coded Allergies Type Severity Reaction Last Updated Verified Iodinated Contrast- Oral and IV Dye Adverse Reaction Severe MRI 09/12/16 Yes Vital Signs Vital Signs Date Time Temp Pulse Resp B/P (MAP) Pulse Ox O2 Delivery O2 Flow Rate FiO2 09/15/16 10:39 98.3 67 20 94/61 (72) 97 Room Air Lab Results Laboratory Tests Test 09/14/16 05:50 09/15/16 06:00 White Blood Count 7.4 x10^3/uL (4.0-11.0) 6.5 x10^3/uL (4.0-11.0) Red Blood Count 3.97 x10^6/uL (3.50-5.40) 4.03 x10^6/uL (3.50-5.40) Hemoglobin 11.9 g/dL (12.0-15.5) 12.2 g/dL (12.0-15.5) Hematocrit 35.0 % (36.0-47.0) 35.7 % (36.0-47.0) Mean Corpuscular Volume 88 fL (79-100) 88 fL (79-100) Mean Corpuscular Hemoglobin 30 pg (25-35) 30 pg (25-35) Mean Corpuscular Hemoglobin Concent 34 g/dL (31-37) 34 g/dL (31-37) Red Cell Distribution Width 14.0 % (11.5-14.5) 14.0 % (11.5-14.5) Platelet Count 154 x10^3/uL (140-400) 163 x10^3/uL (140-400) Neutrophils (%) (Auto) 60 % (31-73) 61 % (31-73) Lymphocytes (%) (Auto) 29 % (24-48) 28 % (24-48) Monocytes (%) (Auto) 8 % (0-9) 8 % (0-9) Eosinophils (%) (Auto) 3 % (0-3) 3 % (0-3) Basophils (%) (Auto) 0 % (0-3) 1 % (0-3) Neutrophils # (Auto) 4.5 x10^3uL (1.8-7.7) 4.0 x10^3uL (1.8-7.7) Lymphocytes # (Auto) 2.1 x10^3/uL (1.0-4.8) 1.8 x10^3/uL (1.0-4.8) Monocytes # (Auto) 0.6 x10^3/uL (0.0-1.1) 0.5 x10^3/uL (0.0-1.1) Eosinophils # (Auto) 0.2 x10^3/uL (0.0-0.7) 0.2 x10^3/uL (0.0-0.7) Basophils # (Auto) 0.0 x10^3/uL (0.0-0.2) 0.0 x10^3/uL (0.0-0.2) Sodium Level 142 mmol/L (136-145) 142 mmol/L (136-145) Potassium Level 4.0 mmol/L (3.5-5.1) 3.6 mmol/L (3.5-5.1) Chloride Level 107 mmol/L (98-107) 106 mmol/L (98-107) Carbon Dioxide Level 28 mmol/L (21-32) 31 mmol/L (21-32) Anion Gap 7 (6-14) 5 (6-14) Blood Urea Nitrogen 8 mg/dL (7-20) 11 mg/dL (7-20) Creatinine 0.9 mg/dL (0.6-1.0) 0.9 mg/dL (0.6-1.0) Estimated GFR (Cockcroft-Gault) 62.1 62.1 BUN/Creatinine Ratio 9 (6-20) 12 (6-20) Glucose Level 90 mg/dL (70-99) 82 mg/dL (70-99) Calcium Level 8.4 mg/dL (8.5-10.1) 8.5 mg/dL (8.5-10.1) Magnesium Level 1.7 mg/dL (1.8-2.4) 1.7 mg/dL (1.8-2.4) Total Bilirubin 0.4 mg/dL (0.2-1.0) 0.5 mg/dL (0.2-1.0) Aspartate Amino Transf (AST/SGOT) 14 U/L (15-37) 13 U/L (15-37) Alanine Aminotransferase (ALT/SGPT) 10 U/L (14-59) 15 U/L (14-59) Alkaline Phosphatase 44 U/L (46-116) 44 U/L (46-116) Total Protein 6.0 g/dL (6.4-8.2) 6.1 g/dL (6.4-8.2) Albumin 2.9 g/dL (3.4-5.0) 3.0 g/dL (3.4-5.0) Albumin/Globulin Ratio 0.9 (1.0-1.7) 1.0 (1.0-1.7) Brief Hospital Course Ms. Acuna is a 70 old [s female ewho presented with complaints of altered mental status, after being outside in the heat for at least an hour after falling when she was outside having a cigarette. She was treated with IV fluids and her metabolic encephalopathy resolved. She was seen by PT and OT and it was deemed that she would benefit from a short stay in rehabilitation. We're waiting for rehabilitation authorization from [facility]. Her stay was unremarkable. Noted that her blood pressure got a little bit low after getting her lisinopril and her lisinopril dose was adjusted. Discharge Information Condition at Discharge: Improved, Stable Disposition/Orders: D/C to Another Facility Dischare Medications Current Medications Sodium Chloride 1,000 ml @ 1,000 mls/hr 1X ONCE IV Last administered on t 16:30; Start 09/11/16 at 16:30; Stop 09/11/16 at 17:29; Status DC Ondansetron HCl (Zofran) 4 mg PRN Q4HRS PRN IV NAUSEA/VOMITING; Start 09/11/16 at 20:00; Stop 09/11/16 at 20:00; Status DC Sodium Chloride 1,000 ml @ 125 mls/hr Q8H IV ; Start 09/11/16 at 19:55; Stop at 19:59; Status DC Acetaminophen (Tylenol) 650 mg PRN Q4HRS PRN PO FEVER; Start 09/11/16 at 20:00 ; Stop 09/11/16 at 20:00; Status DC Ondansetron HCl (Zofran) 4 mg PRN Q4HRS PRN IV NAUSEA/VOMITING; Start 09/11/16 at 20:15; Stop 09/12/16 at 19:59; Status DC Acetaminophen (Tylenol) 650 mg PRN Q4HRS PRN PO FEVER Last administered on 09/12 19:27; Start 09/11/16 at 20:15; Stop 09/12/16 at 19:59; Status DC Sodium Chloride 1,000 ml @ 125 mls/hr Q8H IV Last administered on 09/12/16 13 :29; Start 09/11/16 at 20:00; Stop 09/12/16 at 16:50; Status DC Aspirin (Children'S Aspirin) 81 mg DAILY PO Last administered on 09/15/16 08: 26; Start 09/12/16 at 09:00 Carbidopa/Levodopa (Sinemet 25/100) 1 tab TID PO Last administered on 08:26; Start 09/12/16 at 09:00 Ferrous Sulfate (Feosol) 325 mg QHS PO Last administered on 09/14/16 21:00; Start 09/12/16 at 21:00 Lisinopril (Prinivil) 10 mg DAILY PO Last administered on 09/15/16 08:27; Start 09/12/16 at 09:00; Stop 09/15/16 at 11:52; Status DC Ropinirole HCl (Requip) 0.5 mg TID PO Last administered on 09/15/16 08:27; Start 09/11/16 at 22:00 Simvastatin (Zocor) 40 mg HS PO Last administered on 09/14/16 21:00; Start at 21:00 Calcium/Vitamin D (Oscal D 500mg/ 200uts) 1 tab DAILYWBKFT PO Last administered on 09/15/16 08:26; Start 09/12/16 at 08:00 Multivitamins/ Calcium (Thera-M Plus) 1 tab DAILY PO Last administered on 08:26; Start 09/12/16 at 09:00 Pantoprazole Sodium (Protonix) 40 mg DAILYAC PO Last administered on 09/15/16 08:26; Start 09/12/16 at 07:30 Lidocaine (Lidoderm) 1 patch DAILY TD Last administered on 09/15/16 08:26; Start 09/12/16 at 17:00 Zolpidem Tartrate (Ambien) 5 mg PRN QHS PRN PO INSOMNIA; Start 09/12/16 at 23: 15; Stop 09/12/16 at 23:15; Status DC Acetaminophen (Tylenol) 650 mg PRN Q6HRS PRN PO HEADACHE Last administered on 20:36; Start 09/13/16 at 15:30 Magnesium Chloride (Mag Delay) 64 mg DAILY PO Last administered on 09/15/16 08 :26; Start 09/14/16 at 16:45 Lisinopril (Prinivil) 5 mg DAILY PO ; Start 09/16/16 at 09:00 Active Scripts Active Aspirin 81 Mg Tab.chew 81 Mg PO DAILY 30 Days Sinemet 25-100 Mg Tablet (Carbidopa/Levodopa) 1 Each Tablet 1 Tab PO TID 30 Days Requip (Ropinirole Hcl) 0.5 Mg Tablet 1 Tab PO TID PRN 30 Days Reported Ferrous Sulfate 325 Mg Tablet 325 Mg PO QHS LAST DOSE GIVEN: DATE: YESTERDAY TIME: AT BEDTIME NEXT DOSE DUE: DATE: TODAY TIME: AT BEDTIME Multivitamins (Multivitamin) 1 Each Tablet 1 Each PO DAILY LAST DOSE GIVEN: DATE: TODAY TIME: AM NEXT DOSE DUE: DATE: TOMORROW TIME: AM Calcium 500 + Vit D 400 Tablet (Calcium Carbonate/Vitamin D3) 1 Each Tablet 1 Each PO DAILY LAST DOSE GIVEN: DATE: TODAY TIME: AM NEXT DOSE DUE: DATE: TOMORROW TIME: AM Omeprazole 40 Mg Capsule.dr 40 Mg PO DAILY LAST DOSE GIVEN: DATE: TODAY TIME: AM NEXT DOSE DUE: DATE: TOMORROW TIME: AM Simvastatin 40 Mg Tablet 40 Mg PO HS LAST DOSE GIVEN: DATE: YESTERDAY TIME: AT BEDTIME NEXT DOSE DUE: DATE: TODAY TIME: AT BEDTIME Lisinopril 10 Mg Tablet 10 Mg PO DAILY LAST DOSE GIVEN: DATE: TODAY TIME: AM NEXT DOSE DUE: DATE: TOMORROW TIME: AM Patient Instructions Patient Instuctions See [facility] on [facility]. KAREME REYES DO Sep 15, 2016 12:13
[2016-09-15 14:29] VITALS: BP 95/58
[2016-09-16] MEDS ORDERED: LISINOPRIL 5 MG TABLET. PO SCH (09:00)
== END 2016-09-15 15:10 | DRG 922 ==
LOC: ER 16:10 → ICU 19:57 → ER 19:58 → 1 SOUTH 20:46
PROVIDERS: ADMIT Internal Medicine; ATTEND Internal Medicine
DX: T67.5XXA Heat exhaustion, unspecified, initial encounter (principal); G93.41 Metabolic encephalopathy; E44.1 Mild protein-calorie malnutrition; I69.351 Hemiplegia and hemiparesis following cerebral infarction affecting right dominant side; E86.0 Dehydration; E78.5 Hyperlipidemia, unspecified; F17.210 Nicotine dependence, cigarettes, uncomplicated; G20 Parkinson's disease; G40.909 Epilepsy, unspecified, not intractable, without status epilepticus; H54.7 Unspecified visual loss; H91.90 Unspecified hearing loss, unspecified ear; F32.9 Major depressive disorder, single episode, unspecified; H53.9 Unspecified visual disturbance; Z60.2 Problems related to living alone; F80.9 Developmental disorder of speech and language, unspecified; W07.XXXA Fall from chair, initial encounter; R50.9 Fever, unspecified; I10 Essential (primary) hypertension; Z79.82 Long term (current) use of aspirin; Z79.899 Other long term (current) drug therapy; Z85.3 Personal history of malignant neoplasm of breast; Y93.89 Activity, other specified; Y92.098 Other place in other non-institutional residence as the place of occurrence of the external cause; Y99.8 Other external cause status; Z68.27 Body mass index [BMI] 27.0-27.9, adult; Z91.041 Radiographic dye allergy status; L89.150 Pressure ulcer of sacral region, unstageable
CPT/HCPCS: 36415; 51701; 70450; 71010; 80048; 80053; 81001; 83735; 84484; 85027; 87641; 93005; 96360; 96361; 97110; 97116; 97530; 97535; 99285-25; J7030